=== PATIENT | male | born 1970 | race Caucasian/White ===

== ENCOUNTER 2017-07-25 17:33 | Emergency (ER) | payer BC ==
[2017-07-25 17:46] VITALS: BP 152/93
[2017-07-25] MEDS ORDERED: Sodium Chloride 0.9% 10 ML Syringe FLUSH PRN (18:14)
[2017-07-25] MEDS ORDERED: Sodium Chloride 0.9% 1,000 ML IV ONE (18:15)
[2017-07-25] MEDS ORDERED: HYDROmorphone 1 MG/ML Syringe IVPUSH ONE ×2 (18:15→21:02)
[2017-07-25] MEDS ORDERED: Alum Hydrox/Mag Hydrox/Simeth 30 ML, Lidocaine 2% 15 ML PO ONE ×2 (18:15)
--- NOTE | 2017-07-25 19:18 | CT ---
CT abdomen and pelvis Technique: Multiple axial sections were obtained from the top of the liver inferiorly through the pubic symphysis. Intravenous and oral contrast was not utilized. Study has been performed as a ureteral stone protocol. Comparison: No previous studies available. Findings: Kidneys show no abnormal calcifications. No ureteral dilatation is seen. No ureteral stone is seen. No bladder calculi are seen. Visualized lung bases are clear. Liver shows no focal parenchymal abnormality. Spleen appears within normal limits. Adrenal glands show no nodule. Pancreas appears within normal limits. Aorta shows no aneurysmal dilatation. No retroperitoneal adenopathy or mesenteric abnormalities are seen. Appendix is seen which appears normal in size. Minimal diverticuli are seen within the sigmoid and descending colon without inflammatory change. No free fluid is seen. Bone window settings shows degenerative change within the spine primarily at the thoracolumbar junction with disc space narrowing and endplate irregularity and mild anterior endplate osteophytes. Impression: 1. Incidental findings. No renal calculi, ureteral dilatation or ureteral stone is seen. 2. Nothing acute is identified on noncontrast CT study of the abdomen and pelvis performed as a ureteral stone protocol. Diagnostic code #2
[2017-07-25] MEDS ORDERED: Ketorolac 30 MG/ML SDV IVPUSH ONE (20:10)
--- NOTE | 2017-07-25 20:38 | EDM.PDOC ---
ED HPI GENERAL MEDICAL PROBLEM - General Chief Complaint: Flank Pain Stated Complaint: FLANK PAIN Time Seen by Provider: 07/25/17 18:00 Source of Information: Reports: Patient History Limitations: Reports: No Limitations - History of Present Illness INITIAL COMMENTS - FREE TEXT/NARRATIVE: 47 year old male presents for evaluation and treatment of right flank pain. Reports for the last 2-3 weeks he has not been feeling well. Reports yesterday he developed a sharp pain suddenly to the right flank. Currently symptoms include right flank and back pain, diaphoresis, malaise. Patient also reports he felt feverish last night. No dysuria, nausea, vomiting or hematuria. Has been taking tylenol and motrin without relief. Reports he has had multiple kidney stones in the past and this feels similar. States he has a kidney stone about eveyr 6 months. Reports they always pass on there own and he has never had to see urology for intervention. Has never seen urology for consultation. Reports he has had them analyzed in the past and they were previously calcium. right flank Pain Score (Numeric/FACES): 8 - Related Data Allergies Allergy/AdvReac Type Severity Reaction Status Date / Time amoxicillin Allergy Rash Verified 07/25/17 17:46 Home Meds: Home Meds Aspirin 81 mg PO DAILY 07/25/17 [History] Fluticasone Propionate [Flonase] 1 inh NASBOTH DAILY PRN 07/25/17 [History] Hydrochlorothiazide 25 mg PO DAILY 07/25/17 [History] Rosuvastatin [Crestor] 10 mg PO DAILY 07/25/17 [History] amLODIPine [Norvasc] 0 mg PO DAILY 07/25/17 [History] Past Medical History - Past Health History Medical/Surgical History: Denies Medical/Surgical History Cardiovascular History: Reports: Hypertension Gastrointestinal History: Reports: Cholelithiasis Genitourinary History: Reports: Renal Calculus Other Musculoskeletal History: shoulder, foot, collarbone, ankle fx - Past Surgical History GI Surgical History: Reports: Cholecystectomy Social & Family History - Family History Family Medical History: Noncontributory - Tobacco Use Smoking Status *Q: Current Some Day Smoker Years of Tobacco use: 20 Packs/Tins Daily: 0.5 - Caffeine Use Caffeine Use: Reports: Coffee - Recreational Drug Use Recreational Drug Use: No ED ROS GENERAL - Review of Systems Review Of Systems: See Below Constitutional: Reports: Fever (last night), Malaise, Diaphoresis GI/Abdominal: Denies: Abdominal Pain, Nausea, Vomiting : Reports: Flank Pain (right). Denies: Dysuria, Hematuria Musculoskeletal: Reports: Back Pain (right mid to lower back) ED EXAM, GI/ABD - Physical Exam Exam: See Below Exam Limited By: No Limitations General Appearance: Alert, WD/WN, Mild Distress Ears: Normal External Exam Nose: Normal Inspection Throat/Mouth: Normal Inspection, Normal Voice, No Airway Compromise Respiratory/Chest: No Respiratory Distress, Lungs Clear, Normal Breath Sounds Cardiovascular: Normal Peripheral Pulses, Regular Rate, Rhythm, No Murmur GI/Abdominal Exam: Normal Bowel Sounds, Soft, Non-Tender Back Exam: Normal Inspection, CVA Tenderness (R) Neurological: Alert, Oriented, Normal Cognition Psychiatric: Normal Affect, Normal Mood Skin Exam: Warm, Dry, Normal Color Course - Vital Signs Last Recorded V/S: Last Vital Signs Temp 36.7 C 07/25/17 17:43 Pulse 76 07/25/17 17:43 Resp 18 07/25/17 17:43 BP 152/93 H 07/25/17 17:43 Pulse Ox 97 07/25/17 17:43 - Orders/Labs/Meds Labs: Laboratory Tests 07/25/17 07/25/17 07/25/17 Range/Units 18:40 18:40 18:40 WBC 7.89 (4.23-9.07) K/mm3 RBC 5.40 (4.63-6.08) M/mm3 Hgb 16.0 (13.7-17.5) gm/L Hct 45.0 (40.1-51.0) % MCV 83.3 (79.0-92.2) fl MCH 29.6 (25.7-32.2) pg MCHC 35.6 H (32.2-35.5) g/dl RDW Std Deviation 34.4 L (35.1-43.9) fL Plt Count 185 (163-337) K/mm3 MPV 10.4 (9.4-12.3) fl Neut % (Auto) 55.7 (34.0-67.9) % Lymph % (Auto) 26.6 (21.8-53.1) % [place] % (Auto) 12.7 H (5.3-12.2) % Eos % (Auto) 3.0 (0.8-7.0) Baso % (Auto) 0.4 (0.1-1.2) % Neut # (Auto) 4.39 (1.78-5.38) K/mm3 Lymph # (Auto) 2.10 (1.32-3.57) K/mm3 [place] # (Auto) 1.00 H (0.30-0.82) K/mm3 Eos # (Auto) 0.24 (0.04-0.54) K/mm3 Baso # (Auto) 0.03 (0.01-0.08) K/mm3 Manual Slide Review Normal smear Sodium 136 (136-145) mEq/L Potassium 3.3 L (3.5-5.1) mEq/L Chloride 100 (98-107) mEq/L Carbon Dioxide 29 (21-32) mEq/L Anion Gap 10.3 (5-15) BUN 11 (7-18) mg/dL Creatinine 1.0 (0.7-1.3) mg/dL Est Cr Clr Drug Dosing 96.32 mL/min Estimated GFR (MDRD) > 60 (>60) mL/min BUN/Creatinine Ratio 11.0 L (14-18) Glucose 96 (74-106) mg/dL Calcium 9.2 (8.5-10.1) mg/dL Total Bilirubin 1.5 H (0.2-1.0) mg/dL AST 42 H (15-37) U/L ALT 69 H (16-63) U/L Alkaline Phosphatase 91 (46-116) U/L C-Reactive Protein (<1.0) mg/dL Total Protein 7.6 (6.4-8.2) g/dl Albumin 3.8 (3.4-5.0) g/dl Globulin 3.8 gm/dL Albumin/Globulin Ratio 1.0 (1-2) Lipase 154 (73-393) U/L Urine Color (Yellow) Urine Appearance (Clear) Urine pH (5.0-8.0) Ur Specific Deport (1.005-1.030) Urine Protein (Negative) Urine Glucose (UA) (Negative) Urine Ketones (Negative) Urine Occult Blood (Negative) Urine Nitrite (Negative) Urine Bilirubin (Negative) Urine Urobilinogen (0.2-1.0) Ur Leukocyte Esterase (Negative) Urine RBC (0-5) /hpf Urine WBC (0-5) /hpf Ur Epithelial Cells (0-5) /hpf Urine Bacteria (FEW) /hpf Urine Mucus (FEW) /hpf 07/25/17 07/25/17 Range/Units 19:50 19:50 WBC (4.23-9.07) K/mm3 RBC (4.63-6.08) M/mm3 Hgb (13.7-17.5) gm/L Hct (40.1-51.0) % MCV (79.0-92.2) fl MCH (25.7-32.2) pg MCHC (32.2-35.5) g/dl RDW Std Deviation (35.1-43.9) fL Plt Count (163-337) K/mm3 MPV (9.4-12.3) fl Neut % (Auto) (34.0-67.9) % Lymph % (Auto) (21.8-53.1) % [place] % (Auto) (5.3-12.2) % Eos % (Auto) (0.8-7.0) Baso % (Auto) (0.1-1.2) % Neut # (Auto) (1.78-5.38) K/mm3 Lymph # (Auto) (1.32-3.57) K/mm3 [place] # (Auto) (0.30-0.82) K/mm3 Eos # (Auto) (0.04-0.54) K/mm3 Baso # (Auto) (0.01-0.08) K/mm3 Manual Slide Review Sodium (136-145) mEq/L Potassium (3.5-5.1) mEq/L Chloride (98-107) mEq/L Carbon Dioxide (21-32) mEq/L Anion Gap (5-15) BUN (7-18) mg/dL Creatinine (0.7-1.3) mg/dL Est Cr Clr Drug Dosing mL/min Estimated GFR (MDRD) (>60) mL/min BUN/Creatinine Ratio (14-18) Glucose (74-106) mg/dL Calcium (8.5-10.1) mg/dL Total Bilirubin (0.2-1.0) mg/dL AST (15-37) U/L ALT (16-63) U/L Alkaline Phosphatase (46-116) U/L C-Reactive Protein < 0.2 (<1.0) mg/dL Total Protein (6.4-8.2) g/dl Albumin (3.4-5.0) g/dl Globulin gm/dL Albumin/Globulin Ratio (1-2) Lipase (73-393) U/L Urine Color Yellow (Yellow) Urine Appearance Clear (Clear) Urine pH 6.0 (5.0-8.0) Ur Specific Deport 1.010 (1.005-1.030) Urine Protein Negative (Negative) Urine Glucose (UA) Negative (Negative) Urine Ketones Negative (Negative) Urine Occult Blood Negative (Negative) Urine Nitrite Negative (Negative) Urine Bilirubin Negative (Negative) Urine Urobilinogen 0.2 (0.2-1.0) Ur Leukocyte Esterase Negative (Negative) Urine RBC 0-5 (0-5) /hpf Urine WBC 0-5 (0-5) /hpf Ur Epithelial Cells 0-5 (0-5) /hpf Urine Bacteria Rare (FEW) /hpf Urine Mucus Not seen (FEW) /hpf Meds: Medications Discontinued Medications Generic Name Dose Route Start Last Admin Trade Name Freq PRN Reason Stop Dose Admin Al Hydroxide/Mg Hydroxide 30 0 ml 07/25/17 18:15 07/25/17 18:20 ml/ Lidocaine HCl 15 ml PO 07/25/17 18:16 45 ml ONETIME ONE Administration Hydromorphone HCl 1 mg 07/25/17 18:15 07/25/17 18:41 Dilaudid IVPUSH 07/25/17 18:16 1 mg ONETIME ONE Administration Hydromorphone HCl 1 mg 07/25/17 21:02 07/25/17 21:14 Dilaudid IVPUSH 07/25/17 21:03 1 mg ONETIME ONE Administration Sodium Chloride 1,000 mls @ 999 mls/hr 07/25/17 18:15 07/25/17 18:38 Normal Saline IV 07/25/17 19:15 999 mls/hr ONETIME ONE Administration Ketorolac Tromethamine 30 mg 07/25/17 20:10 07/25/17 20:33 Toradol IVPUSH 07/25/17 20:11 30 mg ONETIME ONE Administration Sodium Chloride 10 ml 07/25/17 18:14 07/25/17 18:39 Saline Flush FLUSH 10 ml ASDIRECTED PRN Administration Keep Vein Open - Radiology Interpretation Free Text/Narrative:: CT of t he abdomen and pelvis without contrast impression 1. incidental findings. 2. No acute process. - Re-Assessments/Exams Free Text/Narrative Re-Assessment/Exam: 07/26/17 18:20 Plan is to obtain labs and CT to rule out stone. Patient is unsure if he has stones currently in his kidneys. Patient asked for a GI cocktail. 07/26/17 20:10 Labs returned. I reviewed the labs with the patient. Report he chronically has elevated liver enzymes. RP and lipase were added on, awaiting these results. Report pain is returning. Will try toradol for pain. 07/26/17 21:05 Reviewed labs and imaging with the patient. Reports no relief with the toradol. Dilaudid ordered for pain. I feel his symptoms are likely muscular in nature. Other possibilities include predromial shingles, stone that has passed but is continuing to cause ureteral spasms, or pain from a herniated or buldged disc. Plan is to treat pain. Follow-up with PCP Friday if not better. Departure - Departure Time of Disposition: 21:16 Disposition: Home, Self-Care 01 Condition: Fair Clinical Impression: Ureteric colic - Discharge Information Instructions: Flank Pain, [id number] Referrals: Osorio Ervin MD [Primary Care Provider] - Forms: ED Department Discharge Additional Instructions: Prescription for Percocet 5-325 #20 given through [facility]. you were given medication the ER that can affect your ability to drive and operate machinery. Do not drive or operative machinery within 12 hours of taking the narcotic medication. make sure you are drinking plenty of fluids. You may take [id number] ibuprofen for pain. For severe pain take Percocet 1 or 2 tabs every 4-[address] or operative machinery within 12 hours of taking the Percocet. Percocet can be habit-forming, recommend you take as few of these as needed to control your pain. Follow up with your primary care provider early next week if your symptoms have not improved. Please return to the ER if your symptoms change or worsen.
== END 2017-07-25 21:35 | disposition home or self-care (01) ==
LOC: JD.ED 17:33
DX: N23 Unspecified renal colic (principal); I10 Essential (primary) hypertension; F17.210 Nicotine dependence, cigarettes, uncomplicated; Z87.442 Personal history of urinary calculi; Z90.49 Acquired absence of other specified parts of digestive tract; Z79.82 Long term (current) use of aspirin; Z79.899 Other long term (current) drug therapy; Z88.1 Allergy status to other antibiotic agents
CPT/HCPCS: 36415; 74176; 80053; 81001; 83690; 85025; 86140; 96361; 96374; 96375; 96376; 99284; A9270; J1170; J1885; J7040; J7050

== ENCOUNTER 2017-08-06 16:07 | Observation (INO) | payer BC ==
[2017-08-06] MEDS ORDERED: Heparin Sodium 10,000 Units/1 ML MDV SUBCUT SCH (16:45)
[2017-08-06] MEDS ORDERED: LORazepam 2 MG/ML MDV IVPUSH PRN (17:06)
[2017-08-06] MEDS ORDERED: HYDROmorphone 0.5 MG/0.5 ML Syringe ONE (17:07)
[2017-08-06] MEDS: Lactated Ringers 1,000 ML IV SCH (17:19)
[2017-08-06] MEDS: HYDROmorphone 0.5 MG/0.5 ML Syringe IVPUSH PRN ×3 (17:22→23:03)
[2017-08-06] MEDS: Pantoprazole 40 MG Vial IVPUSH SCH (17:27)
[2017-08-06] MEDS: Rosuvastatin 10 MG Tab PO SCH ×2 (17:27→20:42)
[2017-08-06] MEDS: Heparin Sodium 5,000 Units/ML Vial SUBCUT SCH ×2 (17:27→20:42)
[2017-08-06] MEDS: traMADol 50 MG Tab PO PRN (18:44)
[2017-08-06] MEDS ORDERED: Diphtheria,Pertussis(Acell),Tetanus Vaccine 0.5 ML SDV IM ONE (21:07)
[2017-08-06] MEDS ORDERED: amLODIPine 5 MG Tab PO SCH (21:45)
[2017-08-06] MEDS: amLODIPine 5 MG Tab**OWN MED PO SCH (22:05)
[2017-08-07] MEDS: Lactated Ringers 1,000 ML IV SCH ×2 (01:35→09:35)
[2017-08-07] MEDS: Gabapentin 100 MG Cap PO SCH ×4 (02:53→20:53)
[2017-08-07] MEDS: Acetaminophen/oxyCODONE 325-5 MG Tab PO PRN ×3 (03:54→16:44)
[2017-08-07] MEDS: amLODIPine 5 MG Tab**OWN MED PO SCH (08:38)
--- NOTE | 2017-08-07 08:48 | HP ---
DATE OF ADMISSION: 08/06/2017 HISTORY OF PRESENT ILLNESS: This is a 47-year-old who has abdominal pain, has had it intermittently for the last 2 weeks. It is usually on the right side, somewhat about a hands breath below the costal margin. He had had about 2 weeks ago dental work with injection Novocain and after that he began to have pain that was in the right flank and seemed to come around to the front. He was seen in the emergency room because it was quite severe and worked up for kidney stone. Urinalysis normal. CT scan was normal and later an ultrasound of the kidney was normal and no stone could be visualized. He was treated with Flomax and pain medication, oxycodone, but his pain has persisted. He was noted also to have high hemoglobin, and hepatic function tests showed mild elevation in SGT and an elevated bilirubin. In fact, review of his old records indicate that bilirubin has been up at times suggesting Gilbert's. He has also had a history of a laparoscopic cholecystectomy in [place] sometime ago. He is also felt to be having problems having a bowel movement since after he has used the oxycodone. The pain has not been improved and the patient was then brought to the clinic outpatient surgery where upper GI endoscopy showed gastritis, no active ulceration, lot of petechiae in the duodenum and mostly antrum and body of the stomach. He was judged to have persistent gastritis. The patient has during his workup another repeat CT scan, which was normal. Appendix was normal. REVIEW OF SYSTEMS: The patient does not have any vomiting, but does have a poor appetite and not eating well. The patient denies any fever, chills, blood in the stool, black stools, and does have a poor oral intake and no history of bulge or diarrhea, change in bowel habits, blood in the stool, chest pain, or shortness of breath. PAST MEDICAL HISTORY: Hyperlipidemia, abnormal heart score on CT scan, hypertension. PAST SURGICAL HISTORY: Cholecystectomy in 2010, colonoscopy in November 2015, knee surgery, history of colonic polyps removed. CURRENT MEDICATIONS: Baby aspirin, oxycodone, Crestor, Flonase, Prozac 20 mg a day, and Norvasc. ALLERGIES: He has allergies to amoxicillin. SOCIAL HISTORY: Never a smoker. Alcohol use only occasionally. PHYSICAL EXAMINATION: GENERAL: An alert cooperative male. EYES: Extraocular muscle motion normal. ORAL CAVITY: Healthy. NECK: Supple. No nodes. No thyromegaly. LUNGS: Clear. No rales, rhonchi, fremitus, dullness. HEART: Tones regular rate. No S3, S4, jugular venous distention. ABDOMEN: Soft. No tenderness, guarding, rebound, or organomegaly. Some mild right kidney pain on percussion. No inguinal or ventral hernias. EXTREMITIES: Upper and lower extremities, no angulation deformities. PSYCHIATRIC: He is alert and cooperative. SKIN: Normal. NEUROLOGIC: 3 through 12 intact. No focal deficit. ASSESSMENT: Persistent abdominal pain, mild elevation of enzymes thought to be Gilbert's syndrome, elevated liver enzymes, possible dehydration, and gastritis on upper GI endoscopy. PLAN: To admit the patient for IV fluids and proton pump inhibitors and pain medication. Discussed this with the patient. He understands and consents. MMODAL /[id number]
[2017-08-07] MEDS: Pantoprazole 40 MG Vial IVPUSH SCH (08:50)
[2017-08-07] MEDS ORDERED: amLODIPine 5 MG Tab PO SCH (09:00)
[2017-08-07] MEDS: Heparin Sodium 5,000 Units/ML Vial SUBCUT SCH ×2 (10:57→22:25)
--- NOTE | 2017-08-07 15:29 | MR ---
MRI abdomen Technique: Various sequences were obtained in axial and coronal planes as well as MR cholangiogram. Contrast was not utilized. Comparison: Prior CT stone protocol exam of 07/25/17. Findings: No filling defects are seen within the CHD or CBD. Pancreatic duct appears within normal limits. Visualized proximal hepatic ducts appear within normal limits. Noncontrast appearance of the liver and spleen appears within normal limits. Very small cyst is noted within the superior left kidney measuring about 5 mm. No additional abnormality is seen within the kidneys. Adrenal glands show no nodule. Pancreas appears within normal limits. Impression: 1. No abnormality is seen on MR cholangiogram study. 2. Small 5 mm cyst within the upper left kidney. 3. No additional abnormality is identified. Diagnostic code #2
--- NOTE | 2017-08-07 18:04 | PCM.PN ---
- General Info Date of Service: 08/07/17 Functional Status: Reports: Pain Controlled - Review of Systems Pulmonary: Reports: No Symptoms Cardiovascular: Reports: No Symptoms Gastrointestinal: Reports: Abdominal Pain (improving) - Patient Data Vitals - Most Recent: Last Vital Signs Temp 98.8 F 08/07/17 12:28 Pulse 74 08/07/17 12:28 Resp 12 08/07/17 12:28 BP 141/88 H 08/07/17 12:28 Pulse Ox 92 L 08/07/17 12:28 Weight - Most Recent: 114.078 kg I&O - Last 24 Hours: Intake & Output 08/07/17 08/07/17 08/07/17 07:59 15:59 23:59 Intake Total 2342 1090 2654 Output Total 1200 Balance 2342 -110 2654 Lab Results Last 24 Hours: Laboratory Results - last 24 hr 08/07/17 08/07/17 08/07/17 Range/Units 05:35 05:35 05:35 WBC 9.20 H (4.23-9.07) K/mm3 RBC 4.97 (4.63-6.08) M/mm3 Hgb 15.1 (13.7-17.5) gm/L Hct 41.8 (40.1-51.0) % MCV 84.1 (79.0-92.2) fl MCH 30.4 (25.7-32.2) pg MCHC 36.1 H (32.2-35.5) g/dl RDW Std Deviation 34.1 L (35.1-43.9) fL Plt Count 179 (163-337) K/mm3 MPV 10.9 (9.4-12.3) fl Neut % (Auto) 78.4 H (34.0-67.9) % Lymph % (Auto) 11.6 L (21.8-53.1) % [place] % (Auto) 8.6 (5.3-12.2) % Eos % (Auto) 0.8 (0.8-7.0) Baso % (Auto) 0.1 (0.1-1.2) % Neut # (Auto) 7.21 H (1.78-5.38) K/mm3 Lymph # (Auto) 1.07 L (1.32-3.57) K/mm3 [place] # (Auto) 0.79 (0.30-0.82) K/mm3 Eos # (Auto) 0.07 (0.04-0.54) K/mm3 Baso # (Auto) 0.01 (0.01-0.08) K/mm3 Manual Slide Review Not Reportable Sodium 137 (136-145) mEq/L Potassium 3.6 (3.5-5.1) mEq/L Chloride 103 (98-107) mEq/L Carbon Dioxide 26 (21-32) mEq/L Anion Gap 11.6 (5-15) BUN (7-18) mg/dL Creatinine (0.7-1.3) mg/dL Est Cr Clr Drug Dosing mL/min Estimated GFR (MDRD) (>60) mL/min BUN/Creatinine Ratio (14-18) Glucose (74-106) mg/dL Calcium (8.5-10.1) mg/dL Total Bilirubin (0.2-1.0) mg/dL AST (15-37) U/L ALT (16-63) U/L Alkaline Phosphatase (46-116) U/L Total Protein (6.4-8.2) g/dl Albumin (3.4-5.0) g/dl Globulin gm/dL Albumin/Globulin Ratio (1-2) H. pylori IgG Antibody Positive H (NEGATIVE) 08/07/17 Range/Units 05:35 WBC (4.23-9.07) K/mm3 RBC (4.63-6.08) M/mm3 Hgb (13.7-17.5) gm/L Hct (40.1-51.0) % MCV (79.0-92.2) fl MCH (25.7-32.2) pg MCHC (32.2-35.5) g/dl RDW Std Deviation (35.1-43.9) fL Plt Count (163-337) K/mm3 MPV (9.4-12.3) fl Neut % (Auto) (34.0-67.9) % Lymph % (Auto) (21.8-53.1) % [place] % (Auto) (5.3-12.2) % Eos % (Auto) (0.8-7.0) Baso % (Auto) (0.1-1.2) % Neut # (Auto) (1.78-5.38) K/mm3 Lymph # (Auto) (1.32-3.57) K/mm3 [place] # (Auto) (0.30-0.82) K/mm3 Eos # (Auto) (0.04-0.54) K/mm3 Baso # (Auto) (0.01-0.08) K/mm3 Manual Slide Review Sodium 138 (136-145) mEq/L Potassium 3.7 (3.5-5.1) mEq/L Chloride 103 (98-107) mEq/L Carbon Dioxide 24 (21-32) mEq/L Anion Gap 14.7 (5-15) BUN 8 (7-18) mg/dL Creatinine 1.0 (0.7-1.3) mg/dL Est Cr Clr Drug Dosing 99.35 mL/min Estimated GFR (MDRD) > 60 (>60) mL/min BUN/Creatinine Ratio 8.0 L (14-18) Glucose 89 (74-106) mg/dL Calcium 8.8 (8.5-10.1) mg/dL Total Bilirubin 2.0 H (0.2-1.0) mg/dL AST 61 H (15-37) U/L ALT 82 H (16-63) U/L Alkaline Phosphatase 97 (46-116) U/L Total Protein 6.9 (6.4-8.2) g/dl Albumin 3.5 (3.4-5.0) g/dl Globulin 3.4 gm/dL Albumin/Globulin Ratio 1.0 (1-2) H. pylori IgG Antibody (NEGATIVE) Med Orders - Current: Current Medications Amlodipine Besylate (Norvasc) 5 mg PO DAILY [facility] Last Admin: 08/07/17 08:38 Dose: 5 mg Bismuth Subsalicylate (Pepto Bismol) 15 ml PO TID [facility] Clarithromycin (Biaxin) 500 mg PO BID [facility] Fluoxetine HCl (Prozac) 20 mg PO DAILY [facility] Gabapentin (Neurontin) 100 mg PO TID [facility] Last Admin: 08/07/17 14:55 Dose: 100 mg Heparin Sodium (Porcine) (Heparin Sodium) 5,000 units SUBCUT Q12HR [facility] Last Admin: 08/07/17 10:57 Dose: 5,000 units Lactated Ringer's (Ringers, Lactated) 1,000 mls @ 125 mls/hr IV ASDIRECTED [facility] Last Admin: 08/07/17 09:35 Dose: 125 mls/hr Lorazepam (Ativan) 0.5 mg IVPUSH Q6H PRN PRN Reason: Anxiety Last Admin: 08/07/17 04:06 Dose: 0.5 mg Metronidazole (Flagyl) 500 mg PO Q8H [facility] Oxycodone/Acetaminophen (Percocet 325-5 Mg) 1 tab PO Q6H PRN PRN Reason: Pain Last Admin: 08/07/17 16:44 Dose: 1 tab Pantoprazole Sodium (Protonix Iv) 40 mg IVPUSH DAILY [facility] Last Admin: 08/07/17 08:50 Dose: 40 mg Rosuvastatin Calcium (Crestor) 10 mg PO BEDTIME [facility] Last Admin: 08/06/17 22:05 Dose: 10 mg Tramadol HCl (Ultram) 50 mg PO QID PRN PRN Reason: Pain Last Admin: 08/06/17 18:44 Dose: 50 mg Discontinued Medications Amlodipine Besylate (Norvasc) 5 mg PO DAILY [facility] Diphtheria/Tetanus/Acell Pertussis (Adacel) 0.5 ml IM .ONCE ONE Stop: 08/06/17 21:08 Heparin Sodium (Porcine) (Heparin Sodium) 5,000 units SUBCUT Q12HR [facility] Hydromorphone HCl (Dilaudid) 0.5 mg IVPUSH Q2H PRN PRN Reason: Pain Last Admin: 08/06/17 23:03 Dose: 0.5 mg Hydromorphone HCl (Dilaudid) Confirm Administered Dose 0.5 mg .ROUTE .STK-MED ONE Stop: 08/06/17 17:08 Last Admin: 08/06/17 17:37 Dose: Not Given Oxycodone/Acetaminophen (Percocet 325-5 Mg) 1 tab PO Q4H PRN PRN Reason: Pain Last Admin: 08/07/17 08:37 Dose: 1 tab Rosuvastatin Calcium (Crestor) 10 mg PO BEDTIME [facility] Last Admin: 08/06/17 20:42 Dose: Not Given - Exam Lungs: Clear to Auscultation, Normal Respiratory Effort Cardiovascular: Regular Rate, Regular Rhythm GI/Abdominal Exam: Normal Bowel Sounds, Soft, Non-Tender, No Organomegaly, No Distention, No Abnormal Bruit, No Mass, Pelvis Stable - Problem List Review Problem List Initiated/Reviewed/Updated: Yes - My Orders Last 24 Hours: My Active Orders 08/06/17 17:06 LORazepam [Ativan] 0.5 mg IVPUSH Q6H PRN 08/06/17 21:07 Vaccines to be Administered [RC] DAILY 08/06/17 22:30 Rosuvastatin [Crestor] 10 mg PO BEDTIME amLODIPine [Norvasc] 5 mg PO DAILY 08/06/17 Dinner Clear Liquid Diet [DIET] 08/07/17 02:00 Gabapentin [Neurontin] 100 mg PO TID 08/07/17 09:00 FLUoxetine [PROzac] 20 mg PO DAILY 08/07/17 09:17 Acetaminophen/oxyCODONE [Percocet 325-5 MG] 1 tab PO Q6H PRN 08/07/17 17:53 Peripheral IV Discontinue [OM.PC] Urgent 08/07/17 18:00 Bismuth Subsalicylate [Pepto Bismol] 15 ml PO TID Clarithromycin [Biaxin] 500 mg PO BID metroNIDAZOLE [Flagyl] 500 mg PO Q8H 08/08/17 Breakfast Heart Healthy Diet [DIET] 08/11/17 07:00 CBC W/O DIFF,HEMOGRAM [HEME] MOTH@0700 08/14/17 07:00 CBC W/O DIFF,HEMOGRAM [HEME] MOTH@0700 08/18/17 07:00 CBC W/O DIFF,HEMOGRAM [HEME] MOTH@0700 08/21/17 07:00 CBC W/O DIFF,HEMOGRAM [HEME] MOTH@0700 08/25/17 07:00 CBC W/O DIFF,HEMOGRAM [HEME] MOTH@0700 - Plan Plan:: pt with H pylori pos l source of his gastritis responding of PPI elevated LFT and bilirubin his MRCP is normal abdominal pain improving Hb has treturned to normal after hydration hi ass improving gastritis and dehydration plan discussed his use of oxycodone and stated that on discharge this medication will no be given will treat His h pylori with quadruple medication and use biaxin in place of tetracycline since this is not on the formulary, will DC his IV and advance diet [facility]
[2017-08-07] MEDS: metroNIDAZOLE 500 MG Tab PO SCH (18:28)
[2017-08-07] MEDS: Bismuth Subsalicylate 262 MG/15 ML Susp 236 ML Bottle PO SCH ×2 (19:31→22:29)
[2017-08-08] MEDS: Acetaminophen/oxyCODONE 325-5 MG Tab PO PRN ×2 (00:48→06:25)
[2017-08-08] MEDS: metroNIDAZOLE 500 MG Tab PO SCH ×3 (00:48→10:20)
[2017-08-08] MEDS: amLODIPine 5 MG Tab**OWN MED PO SCH (08:50)
[2017-08-08] MEDS: Gabapentin 100 MG Cap PO SCH (08:50)
[2017-08-08] MEDS: Pantoprazole 40 MG Vial IVPUSH SCH (08:50)
[2017-08-08] MEDS: Heparin Sodium 5,000 Units/ML Vial SUBCUT SCH (08:51)
[2017-08-08 08:52] VITALS: BP 133/91
[2017-08-08] MEDS: traMADol 50 MG Tab PO PRN (08:56)
[2017-08-08] MEDS ORDERED: FLUoxetine 20 MG Cap PO SCH (09:00)
[2017-08-08] MEDS: Bismuth Subsalicylate 262 MG/15 ML Susp 236 ML Bottle PO SCH (10:19)
--- NOTE | 2017-08-09 02:49 | DISCH ---
ADMISSION DATE: 08/06/2017 DISCHARGE DATE: 08/08/2017 HISTORY OF PRESENT ILLNESS: This is a 47-year-old who has had abdominal pain intermittently for the last 2 weeks on the right-side. This occurred after dental surgery. He was seen in the emergency room because of the severity of the pain. Urinalysis was normal. CT scan was done. An ultrasound of the kidney was done, but none revealed any evidence of a stone; although, the initial pain started over the right kidney and he had had kidney stones in the past. He was given oxycodone and was followed up in the clinic. He was noted to have a high hemoglobin of 17, elevated liver enzymes, and bilirubin. Because upper GI endoscopy was done showing gastritis, because of the persistence of his pain, he is admitted to the hospital for observation. PHYSICAL EXAMINATION: GENERAL: At the time of admission showed alert and cooperative male. EYES, EYES, EARS, NOSE, AND THROAT: Unremarkable. NECK: Supple. LUNGS: Clear. HEART: Tones regular. ABDOMEN: Soft and some right kidney pain on percussion was noted. EXTREMITIES: Exam is unremarkable. PSYCHIATRIC: He was cooperative. HOSPITAL COURSE: The patient was placed in the hospital and placed on IVs. IV fluids were given and his hemoglobin returned to normal, but his enzymes continued to remain high and in that respect an MRCP was done, which did not show any abnormality. His pain was managed with Dilaudid, which he took about every 2 hours, demanding it, and he was given for his anxiety some Ativan, which seemed to help. He was also placed on IV Protonix; and the following day, his pain seemed to improve and further testing showed H. pylori positivity and it was felt to probably represent H. pylori gastritis, which was the cause of his pain. The next 24 hours, the patient had improved enough to go home and to wean off his oxycodone and will be prescribed Vicodin and hydrocodone. He does have an allergy to amoxicillin, it was a rash when he was about age 16, suggesting it might be due to mononucleosis. The patient had reached maximum hospital benefit and was able to the eat without problems, where before he was having difficulty eating. DISCHARGE DIAGNOSES: 1. Dehydration with elevated hemoglobin, resolved with fluid. 2. Abdominal pain, secondary to H. pylori gastritis. 3. Elevated liver enzymes, cause not known. 4. 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 DISCHARGE INSTRUCTIONS: He is improved, regular diet, may return to work at his discretion, and follow up with Dr. Bess. DISCHARGE MEDICATIONS: Medications will be H. pylori regime consisting of Pepto-Bismol, Flagyl, tetracycline, and Prilosec. DIET: As tolerated. CONDITION: Improved. FINAL DIAGNOSIS: ACTIVITY: FOLLOW-UP: CONDITION ON DISCHARGE: MMODAL /[id number]
== END 2017-08-08 14:30 | disposition home or self-care (01) ==
LOC: UNDOADMOB 16:07 → INTOOBSV 16:07 → JD.MS 16:07
PROVIDERS: ADMIT Surgery; ATTEND Surgery
DX: E86.0 Dehydration (principal); D58.2 Other hemoglobinopathies; K29.70 Gastritis, unspecified, without bleeding; R94.5 Abnormal results of liver function studies; E80.7 Disorder of bilirubin metabolism, unspecified; I10 Essential (primary) hypertension; E78.5 Hyperlipidemia, unspecified; Z79.82 Long term (current) use of aspirin; Z90.49 Acquired absence of other specified parts of digestive tract; Z98.890 Other specified postprocedural states; Z79.899 Other long term (current) drug therapy; Z88.1 Allergy status to other antibiotic agents
CPT/HCPCS: 36415; 74181; 80051; 80053; 85025; 86677; A9270; C9113; J1170; J1644; J2060; J7120; 96361; 96372; 96374; 96375; 96376; G0378; G0379